=== PATIENT | female | born 1965 | race Hispanic/Latino ===

== ENCOUNTER 2021-04-27 18:47 | Emergency (ER) | payer SELFPAY ==
[~2021-04-27] VITALS: Ht 170.2 cm; Wt 99.8 kg
[2021-04-27] MEDS ORDERED: PROVENTIL HFA6.7 GM INH (19:26)
[2021-04-27] MEDS ORDERED: PREDNISONE50 MG PO (19:26)
[2021-04-27] MEDS ORDERED: ALLEGRA-D 12 H1 EACH PO (19:26)
[2021-04-27] MEDS ORDERED: AZITHROMYCIN250 MG PO (19:26)
[2021-04-27 20:26] VITALS: BP 132/73
== END 2021-04-27 20:28 | disposition home or self-care (01) ==
LOC: ER 19:06
DX: R05.9 Cough, unspecified (principal); J06.9 Acute upper respiratory infection, unspecified; F41.9 Anxiety disorder, unspecified; M10.9 Gout, unspecified; F17.210 Nicotine dependence, cigarettes, uncomplicated
CPT/HCPCS: 99282